=== PATIENT | male | born 1950 | race African-American/Black ===

== ENCOUNTER 2018-12-24 15:11 | Emergency (ER) | payer MEDICAID, MEDICARE ==
[~2018-12-24] VITALS: Ht 170.2 cm; Wt 63.5 kg
[2018-12-24] MEDS ORDERED: SACU1TAB4 MT (15:25)
[2018-12-24] MEDS ORDERED: SPIR25TA6 MT (15:25)
[2018-12-24] MEDS ORDERED: ATOR20TA65 MT (15:25)
[2018-12-24] MEDS ORDERED: CARV6.2548 MT (15:25)
[2018-12-24] MEDS ORDERED: FUROSEMIDE 40MG/4ML VIAL IV ONE (21:00)
[2018-12-24 21:41] LABS: EOSINOPHILS % 1.1 % (0.0-5.0); HEMATOCRIT. 42.1 % (42.0-52.0); HEMOGLOBIN. 13.9 g/dL (14.0-18.0); MEAN CORPUSCULAR VOLUME 97.1 fL (80.0-94.0); MEAN PLATELET VOLUME 10.6 fl (7.4-10.4); MONOCYTES % 8.9 % (2.0-8.0); PLATELET 149 x1000/uL (130-400); RED BLOOD CELL COUNT 4.33 mill/uL (4.7-6.1); RED CELL DISTRIBUTION WIDTH 13.7 % (11.6-14.6)
[2018-12-24 21:49] LABS: CHLORIDE 112 mEq/L (98-107)
[2018-12-24 23:35] VITALS: BP 140/87
== END 2018-12-24 23:38 | disposition home or self-care (01) ==
LOC: ER 15:11 → SUPCPDRO 22:03 → ER 23:38
DX: I11.0 Hypertensive heart disease with heart failure (principal); I50.9 Heart failure, unspecified; E78.00 Pure hypercholesterolemia, unspecified; F17.200 Nicotine dependence, unspecified, uncomplicated; F12.10 Cannabis abuse, uncomplicated; Z95.0 Presence of cardiac pacemaker
CPT/HCPCS: 36415; 71045; 80053; 83880; 84484; 85025; 93005; 96374; 99284; 99406; J1940

== ENCOUNTER 2020-02-06 10:06 | Inpatient (IN) | payer MEDICARE, MEDICAID ==
[~2020-02-06] VITALS: Ht 170.2 cm; Wt 66.7 kg
[~2020-02-06 10:06] MED LIST: ATOR20TA65 MT; CARV6.2548 MT; SACU1TAB4 MT; SPIR25TA6 MT
[2020-02-06] MEDS ORDERED: FURO40TA5 PO (10:35)
[2020-02-06] MEDS ORDERED: NITROGLYCERIN OINT 1GM/INCH UDPKT TD ONE (10:45)
[2020-02-06 11:44] LABS: BASOPHILS % 0.7 % (0.0-2.0); EOSINOPHILS % 0.9 % (0.0-5.0); HEMATOCRIT. 41.7 % (42.0-52.0); HEMOGLOBIN. 13.9 g/dL (14.0-18.0); LYMPHOCYTES % 18.1 % (20.0-50.0); MEAN CORPUSCULAR HEMOGLOBIN 33.1 pg (28.0-32.0); MEAN PLATELET VOLUME 12.2 fl (7.4-10.4); MONOCYTES % 11.3 % (2.0-8.0); PLATELET 118 x1000/uL (130-400); RED BLOOD CELL COUNT 4.21 mill/uL (4.7-6.1); RED CELL DISTRIBUTION WIDTH 14.9 % (11.6-14.6)
[2020-02-06 11:50] LABS: CHLORIDE 110 mEq/L (98-107)
[2020-02-06 11:51] LABS: INR 1.2; PROTHROMBIN TIME 13.2 sec (9.6-11.0)
[2020-02-06] MEDS ORDERED: ASPIRIN 325MG EC TABLET PO ONE (12:15)
[2020-02-06 12:45] VITALS: BP 143/99
[2020-02-06] MEDS: FUROSEMIDE 40MG/4ML VIAL IVP SCH ×2 (14:05→17:55)
[2020-02-06 16:00] VITALS: BP 139/99
[2020-02-06 16:13] LABS: CLARITY URINE CLEAR (CLEAR); COLOR URINE YELLOW (YELLOW); KETONES URINE NEGATIVE (NEGATIVE); LEUKOCYTE ESTERASE URINE NEGATIVE (NEGATIVE); NITRITE URINE NEGATIVE (NEGATIVE); OCCULT BLOOD URINE TRACE (NEGATIVE); PH URINE 5.5 (4.5-8.0); PROTEIN URINE 3+ (NEGATIVE); SPECIFIC GRAVITY URINE 1.016 (1.005-1.030)
[2020-02-06] MEDS ORDERED: ENOXAPARIN 30MG/0.3ML SYR SUBCUT SCH (19:00)
[2020-02-06 20:00] VITALS: BP 133/96
[2020-02-06] MEDS: CARVEDILOL 6.25 MG TABLET PO SCH (21:39)
[2020-02-07] VITALS: BP 122/92
[2020-02-07] MEDS ORDERED: ACETAMINOPHEN 325MG TABLET PO PRN
[2020-02-07] MEDS: IPRATROPIUM/ALBUTEROL 0.5-3(2.5)MG/3ML NEB HHN SCH ×3 (00:45→20:15)
[2020-02-07 04:00] VITALS: BP 135/100
[2020-02-07] MEDS: FUROSEMIDE 40MG/4ML VIAL IVP SCH ×2 (06:10→18:01)
[2020-02-07 06:36] LABS: BASOPHILS % 0.8 % (0.0-2.0); EOSINOPHILS % 3.1 % (0.0-5.0); HEMATOCRIT. 40.3 % (42.0-52.0); HEMOGLOBIN. 13.6 g/dL (14.0-18.0); MEAN CORPUSCULAR HEMOGLOBIN 32.9 pg (28.0-32.0); MEAN CORPUSCULAR VOLUME 97.5 fL (80.0-94.0); MEAN PLATELET VOLUME 11.4 fl (7.4-10.4); MONOCYTES % 9.7 % (2.0-8.0); NEUTROPHILS % 65.4 % (40.0-76.0); PLATELET 116 x1000/uL (130-400); RED BLOOD CELL COUNT 4.13 mill/uL (4.7-6.1); RED CELL DISTRIBUTION WIDTH 14.7 % (11.6-14.6)
[2020-02-07 08:00] VITALS: BP 145/97
[2020-02-07] MEDS: CARVEDILOL 6.25 MG TABLET PO SCH ×2 (08:45→20:33)
[2020-02-07] MEDS: ENOXAPARIN 30MG/0.3ML SYR SUBCUT SCH (08:45)
[2020-02-07] MEDS ORDERED: HYDRALAZINE 20MG/ML VIAL IV PRN (11:15)
[2020-02-07 12:00] VITALS: BP 137/98
[2020-02-07 16:00] VITALS: BP 149/100
[2020-02-07 16:38] LABS: BG BASE EXCESS -0.5 mmol/L (-2.0-2.0); BG CARBOXYHEMOGLOBIN 0.4 % (0.5-1.5); BG DEOXYHEMOGLOBIN 3.2 % (0.0-5.0); BG FRACTION INSPIRED OXYGEN 28; BG METHEMOGLOBIN 0.1 % (0.0-1.5); BG OXYGEN SATURATION 96.8 % (92.0-98.5); BG OXYHEMOGLOBIN 96.3 % (94.0-97.0); BG PCO2 34.4 mmHg (35.0-45.0); BG PH 7.443 (7.350-7.450); BG PO2 87.7 mmHg (75.0-100.0); BG SAMPLE SITE LEFT RADIAL; BG TOTAL HEMOGLOBIN 14.3 g/dL (12.0-18.0); BG VENT MODE NASAL CANNULA
[2020-02-07 20:00] VITALS: BP_SYST 124; BP_DIAS 82; BP_DIAS 86
[2020-02-08] VITALS: BP 137/92
[2020-02-08] MEDS: IPRATROPIUM/ALBUTEROL 0.5-3(2.5)MG/3ML NEB HHN SCH ×5 (00:30→20:12)
[2020-02-08 04:00] VITALS: BP 131/84
[2020-02-08] MEDS: FUROSEMIDE 40MG/4ML VIAL IVP SCH ×2 (06:17→17:14)
[2020-02-08 08:00] VITALS: BP 133/85
[2020-02-08] MEDS: ENOXAPARIN 30MG/0.3ML SYR SUBCUT SCH (09:02)
[2020-02-08] MEDS: CARVEDILOL 6.25 MG TABLET PO SCH ×2 (09:02→21:53)
[2020-02-08 09:44] LABS: BASOPHILS % 0.8 % (0.0-2.0); HEMATOCRIT. 40.7 % (42.0-52.0); HEMOGLOBIN. 13.9 g/dL (14.0-18.0); LYMPHOCYTES % 18.1 % (20.0-50.0); MEAN CORPUSCULAR HEMOGLOBIN 33.2 pg (28.0-32.0); MEAN CORPUSCULAR VOLUME 96.8 fL (80.0-94.0); MEAN PLATELET VOLUME 12.3 fl (7.4-10.4); MONOCYTES % 10.3 % (2.0-8.0); NEUTROPHILS % 67.8 % (40.0-76.0); PLATELET 129 x1000/uL (130-400); RED CELL DISTRIBUTION WIDTH 14.7 % (11.6-14.6)
[2020-02-08 12:00] VITALS: BP 138/95
[2020-02-08] MEDS ORDERED: IPRATROPIUM/ALBUTEROL 0.5-3(2.5)MG/3ML NEB HHN PRN (15:15)
[2020-02-08 16:00] VITALS: BP 139/99
[2020-02-08 23:58] VITALS: BP 133/79
[2020-02-09] MEDS: IPRATROPIUM/ALBUTEROL 0.5-3(2.5)MG/3ML NEB HHN SCH ×4 (02:00→21:05)
[2020-02-09 04:00] VITALS: BP 134/96
[2020-02-09 05:39] LABS: BASOPHILS % 0.9 % (0.0-2.0); HEMATOCRIT. 39.1 % (42.0-52.0); HEMOGLOBIN. 13.4 g/dL (14.0-18.0); LYMPHOCYTES % 17.7 % (20.0-50.0); MEAN CORPUSCULAR HEMOGLOBIN 33.2 pg (28.0-32.0); MEAN CORPUSCULAR VOLUME 97.2 fL (80.0-94.0); MEAN PLATELET VOLUME 11.6 fl (7.4-10.4); MONOCYTES % 12.6 % (2.0-8.0); NEUTROPHILS % 65.8 % (40.0-76.0); PLATELET 134 x1000/uL (130-400); RED BLOOD CELL COUNT 4.02 mill/uL (4.7-6.1); RED CELL DISTRIBUTION WIDTH 14.6 % (11.6-14.6)
[2020-02-09] MEDS: FUROSEMIDE 40MG/4ML VIAL IVP SCH ×2 (06:28→17:06)
[2020-02-09 08:00] VITALS: BP 138/80
[2020-02-09] MEDS ORDERED: POTASSIUM CHLORIDE 10MEQ TABLET SR PO SCH (09:00)
[2020-02-09] MEDS: ENOXAPARIN 30MG/0.3ML SYR SUBCUT SCH (09:09)
[2020-02-09] MEDS: CARVEDILOL 6.25 MG TABLET PO SCH ×2 (09:09→21:26)
[2020-02-09] MEDS ORDERED: KCL 20MEQ/100ML PREMIX 100 ML IV SCH (10:00)
[2020-02-09] MEDS ORDERED: CARV6.2548 MT (11:31)
[2020-02-09] MEDS ORDERED: FURO-151 MT (11:31)
[2020-02-09] MEDS ORDERED: ATOR40TA70 MT (11:34)
[2020-02-09 12:00] VITALS: BP 133/85
[2020-02-09] MEDS ORDERED: POTASSIUM CHLORIDE 20MEQ TABLET SR PO NR (12:00)
[2020-02-09 12:42] VITALS: BP_SYST 121; BP_SYST 133; BP_DIAS 80; BP_DIAS 85
[2020-02-09 16:00] VITALS: BP 141/98
[2020-02-09] MEDS: POTASSIUM CHLORIDE 20MEQ TABLET SR PO SCH (17:05)
[2020-02-09] MEDS ORDERED: ZOLPIDEM TARTRATE 5MG TABLET PO PRN (19:30)
[2020-02-09 20:00] VITALS: BP 139/96
[2020-02-10] VITALS: BP 131/94
[2020-02-10 04:00] VITALS: BP 152/94
[2020-02-10] MEDS: FUROSEMIDE 40MG/4ML VIAL IVP SCH (06:36)
[2020-02-10 06:54] LABS: BASOPHILS % 0.8 % (0.0-2.0); EOSINOPHILS % 3.1 % (0.0-5.0); HEMATOCRIT. 42.9 % (42.0-52.0); HEMOGLOBIN. 14.7 g/dL (14.0-18.0); LYMPHOCYTES % 14.2 % (20.0-50.0); MEAN CORPUSCULAR HEMOGLOBIN 33.3 pg (28.0-32.0); MEAN CORPUSCULAR VOLUME 97.4 fL (80.0-94.0); MONOCYTES % 10.8 % (2.0-8.0); NEUTROPHILS % 71.1 % (40.0-76.0); PLATELET 153 x1000/uL (130-400); RED BLOOD CELL COUNT 4.41 mill/uL (4.7-6.1); RED CELL DISTRIBUTION WIDTH 14.7 % (11.6-14.6)
[2020-02-10] MEDS: IPRATROPIUM/ALBUTEROL 0.5-3(2.5)MG/3ML NEB HHN SCH (07:30)
[2020-02-10 07:58] VITALS: BP 123/83
[2020-02-10] MEDS: POTASSIUM CHLORIDE 20MEQ TABLET SR PO SCH (09:00)
[2020-02-10] MEDS ORDERED: POTASSIUM CHLORIDE 20MEQ TABLET SR PO SCH ×2 (09:00)
[2020-02-10] MEDS: CARVEDILOL 6.25 MG TABLET PO SCH (09:30)
[2020-02-10] MEDS: ENOXAPARIN 30MG/0.3ML SYR SUBCUT SCH (09:32)
[2020-02-10 11:46] VITALS: BP 121/80
== END 2020-02-10 14:07 | disposition home or self-care (01) | DRG 291 ==
LOC: ER 10:06 → 7WST 11:27 → EDBEDREQ 11:30 → ENRESERV 11:38
PROVIDERS: ADMIT Specialist; ATTEND Specialist
DX: I13.2 Hypertensive heart and chronic kidney disease with heart failure and with stage 5 chronic kidney disease, or end stage renal disease (principal); I50.23 Acute on chronic systolic (congestive) heart failure; E43 Unspecified severe protein-calorie malnutrition; J96.01 Acute respiratory failure with hypoxia; N18.6 End stage renal disease; N17.9 Acute kidney failure, unspecified; F12.90 Cannabis use, unspecified, uncomplicated; D69.6 Thrombocytopenia, unspecified; D64.9 Anemia, unspecified; I25.10 Atherosclerotic heart disease of native coronary artery without angina pectoris; J44.9 Chronic obstructive pulmonary disease, unspecified; D72.821 Monocytosis (symptomatic); E78.5 Hyperlipidemia, unspecified; E87.6 Hypokalemia; I08.1 Rheumatic disorders of both mitral and tricuspid valves; I25.5 Ischemic cardiomyopathy; Z60.2 Problems related to living alone; I27.21 Secondary pulmonary arterial hypertension; Z68.23 Body mass index [BMI] 23.0-23.9, adult; Z95.810 Presence of automatic (implantable) cardiac defibrillator; Z79.899 Other long term (current) drug therapy
CPT/HCPCS: 36415; 36600; 71045; 76770; 80048; 80053; 80061; 81003; 82375; 82550; 82805; 83735; 83880; 84484; 85025; 93005; 93306; 94618; 94640; 96365; 97162; 99285; J1650; J1940; J3480

== ENCOUNTER 2021-03-04 15:48 | Inpatient (IN) | payer MEDICARE, MEDICAID ==
[~2021-03-04] VITALS: Ht 170.2 cm; Wt 66.7 kg
[~2021-03-04 15:48] MED LIST changes: -ATOR20TA65 MT; +ATOR40TA70 MT; +FURO-151 MT; -SACU1TAB4 MT; -SPIR25TA6 MT
[2021-03-04 20:23] LABS: BASOPHILS % 0.8 % (0.0-2.0); EOSINOPHILS % 2.3 % (0.0-5.0); HEMOGLOBIN. 13.1 g/dL (14.0-18.0); MEAN CORPUSCULAR HEMOGLOBIN 33.9 pg (28.0-32.0); MEAN CORPUSCULAR VOLUME 98.2 fL (80.0-94.0); MEAN PLATELET VOLUME 10.9 fl (7.4-10.4); MONOCYTES % 9.8 % (2.0-8.0); NEUTROPHILS % 69.1 % (40.0-76.0); PLATELET 202 x1000/uL (130-400); RED BLOOD CELL COUNT 3.87 mill/uL (4.7-6.1); RED CELL DISTRIBUTION WIDTH 14.7 % (11.6-14.6)
[2021-03-04 20:29] LABS: CHLORIDE 110 mEq/L (98-107)
[2021-03-04] MEDS ORDERED: FUROSEMIDE 20MG/2ML VIAL IVP ONE (20:45)
[2021-03-04] MEDS ORDERED: LEVOFLOXACIN 750MG PREMIX 150 ML IV ONE (20:45)
[2021-03-04] MEDS ORDERED: HYDROCODONE/ACETAMINOPHEN 5/325MG TABLET PO PRN (23:00)
[2021-03-04] MEDS ORDERED: ONDANSETRON HCL 4MG/2ML INJ IV PRN (23:00)
[2021-03-04] MEDS ORDERED: IPRATROPIUM/ALBUTEROL 0.5-3(2.5)MG/3ML NEB HHN PRN (23:00)
[2021-03-05] MEDS: FUROSEMIDE 40MG/4ML VIAL IV SCH ×3 (00:07→16:17)
[2021-03-05 04:43] LABS: BASOPHILS % 0.6 % (0.0-2.0); EOSINOPHILS % 1.8 % (0.0-5.0); HEMATOCRIT. 37.7 % (42.0-52.0); HEMOGLOBIN. 12.6 g/dL (14.0-18.0); LYMPHOCYTES % 16.5 % (20.0-50.0); MEAN CORPUSCULAR HEMOGLOBIN 32.9 pg (28.0-32.0); MEAN CORPUSCULAR VOLUME 98.1 fL (80.0-94.0); MONOCYTES % 11.3 % (2.0-8.0); NEUTROPHILS % 69.8 % (40.0-76.0); PLATELET 195 x1000/uL (130-400); RED BLOOD CELL COUNT 3.84 mill/uL (4.7-6.1); RED CELL DISTRIBUTION WIDTH 14.8 % (11.6-14.6)
[2021-03-05 04:53] LABS: CHLORIDE 110 mEq/L (98-107)
[2021-03-05 05:01] LABS: HDL CHOLESTEROL 41 mg/dL (40-59)
[2021-03-05 05:03] LABS: LDL CHOLESTEROL 86 mg/dL (5-100)
[2021-03-05 05:04] LABS: CREATINE KINASE 132 IU/L (39-308)
[2021-03-05 05:08] LABS: T4 FREE 2.02 ng/dL (0.76-1.46)
[2021-03-05] MEDS ORDERED: CLONIDINE 0.1MG TABLET PO NR (06:30)
[2021-03-05 09:50] VITALS: BP 167/101
[2021-03-05] MEDS ORDERED: CARVEDILOL 3.125 MG TABLET PO NR (10:30)
[2021-03-05] MEDS: ASPIRIN 81MG EC TABLET PO SCH (11:04)
[2021-03-05] MEDS: CLONIDINE 0.1MG TABLET PO PRN (11:04)
[2021-03-05 11:26] LABS: BG BASE EXCESS -0.3 mmol/L (-2.0-2.0); BG CARBOXYHEMOGLOBIN 0.5 % (0.5-1.5); BG DEOXYHEMOGLOBIN 3.3 % (0.0-5.0); BG FRACTION INSPIRED OXYGEN 36; BG HCO3 ACT 24.1 mmol/L (22.0-26.0); BG METHEMOGLOBIN 0.3 % (0.0-1.5); BG OXYGEN SATURATION 96.7 % (92.0-98.5); BG OXYHEMOGLOBIN 95.9 % (94.0-97.0); BG PCO2 38.8 mmHg (35.0-45.0); BG PH 7.411 (7.350-7.450); BG PO2 92.2 mmHg (75.0-100.0); BG SAMPLE SITE RIGHT RADIAL; BG TOTAL HEMOGLOBIN 13.6 g/dL (12.0-18.0); BG VENT MODE NASAL CANNULA
[2021-03-05 12:00] VITALS: BP 165/123
[2021-03-05 13:30] VITALS: BP 146/83
[2021-03-05 16:00] VITALS: BP 145/91
[2021-03-05] MEDS: ENOXAPARIN 30MG/0.3ML SYR SUBCUT SCH (16:17)
[2021-03-05] MEDS ORDERED: ACETAMINOPHEN 650MG SUPP PR PRN (16:45)
[2021-03-05] MEDS ORDERED: HYDRALAZINE 20MG/ML VIAL IV PRN (16:45)
[2021-03-05] MEDS ORDERED: ACETAMINOPHEN 325MG TABLET PO PRN (16:45)
[2021-03-05] MEDS ORDERED: LORAZEPAM 2MG/ML CPJ IV PRN (16:45)
[2021-03-05] MEDS ORDERED: LACTULOSE 20G/30ML UDC PO PRN (16:45)
[2021-03-05] MEDS: CARVEDILOL 3.125 MG TABLET PO SCH (20:38)
[2021-03-05] MEDS: FAMOTIDINE 20MG TABLET PO SCH (20:38)
[2021-03-05 20:42] VITALS: BP 139/108
[2021-03-06] VITALS (7 sets, daily range): BP systolic 133–158; BP diastolic 85–113
[2021-03-06 06:47] LABS: BASOPHILS % 0.5 % (0.0-2.0); EOSINOPHILS % 2.2 % (0.0-5.0); HEMATOCRIT. 38.6 % (42.0-52.0); HEMOGLOBIN. 12.8 g/dL (14.0-18.0); LYMPHOCYTES % 16.7 % (20.0-50.0); MEAN CORPUSCULAR HEMOGLOBIN 32.8 pg (28.0-32.0); MEAN CORPUSCULAR VOLUME 98.8 fL (80.0-94.0); MONOCYTES % 9.4 % (2.0-8.0); NEUTROPHILS % 71.2 % (40.0-76.0); PLATELET 193 x1000/uL (130-400); RED BLOOD CELL COUNT 3.91 mill/uL (4.7-6.1)
[2021-03-06] MEDS: ASPIRIN 81MG EC TABLET PO SCH (09:16)
[2021-03-06] MEDS: FUROSEMIDE 40MG/4ML VIAL IV SCH ×2 (09:17→16:57)
[2021-03-06] MEDS: CARVEDILOL 3.125 MG TABLET PO SCH ×2 (09:17→21:27)
[2021-03-06] MEDS ORDERED: POTASSIUM CHLORIDE 20MEQ TABLET SR PO NR (09:30)
[2021-03-06] MEDS ORDERED: POTASSIUM CHLORIDE 20MEQ TABLET SR PO ONE (09:30)
[2021-03-06] MEDS ORDERED: METOLAZONE 2.5MG TABLET PO NR (09:30)
[2021-03-06] MEDS: CLONIDINE 0.1MG TABLET PO PRN (16:57)
[2021-03-06] MEDS: ENOXAPARIN 30MG/0.3ML SYR SUBCUT SCH (16:57)
[2021-03-06] MEDS: SILDENAFIL CITRATE 20MG TABLET PO SCH (21:27)
[2021-03-06] MEDS: FAMOTIDINE 20MG TABLET PO SCH (21:28)
[2021-03-07] VITALS (7 sets, daily range): BP systolic 112–129; BP diastolic 66–84
[2021-03-07] MEDS: SILDENAFIL CITRATE 20MG TABLET PO SCH ×3 (06:29→21:38)
[2021-03-07 06:35] LABS: BASOPHILS % 0.6 % (0.0-2.0); EOSINOPHILS % 3.2 % (0.0-5.0); HEMATOCRIT. 39.2 % (42.0-52.0); HEMOGLOBIN. 13.5 g/dL (14.0-18.0); MEAN CORPUSCULAR HEMOGLOBIN 33.8 pg (28.0-32.0); MEAN CORPUSCULAR VOLUME 97.9 fL (80.0-94.0); MONOCYTES % 8.9 % (2.0-8.0); NEUTROPHILS % 67.3 % (40.0-76.0); PLATELET 199 x1000/uL (130-400); RED CELL DISTRIBUTION WIDTH 14.4 % (11.6-14.6)
[2021-03-07] MEDS: FUROSEMIDE 40MG/4ML VIAL IV SCH ×2 (08:51→16:45)
[2021-03-07] MEDS: ASPIRIN 81MG EC TABLET PO SCH (08:51)
[2021-03-07] MEDS: CARVEDILOL 3.125 MG TABLET PO SCH ×2 (08:51→21:37)
[2021-03-07] MEDS ORDERED: POTASSIUM CHLORIDE 20MEQ TABLET SR PO NR ×2 (09:30→16:00)
[2021-03-07] MEDS: ENOXAPARIN 30MG/0.3ML SYR SUBCUT SCH (16:48)
[2021-03-07] MEDS: FAMOTIDINE 20MG TABLET PO SCH (21:38)
[2021-03-07] MEDS ORDERED: POTASSIUM CHLORIDE 20MEQ TABLET SR PO SCH (21:45)
[2021-03-08] VITALS: BP 103/76
[2021-03-08 02:06] VITALS: BP 103/76
[2021-03-08 04:00] VITALS: BP 113/72
[2021-03-08] MEDS: SILDENAFIL CITRATE 20MG TABLET PO SCH ×2 (06:15→13:52)
[2021-03-08 06:51] LABS: BASOPHILS % 0.5 % (0.0-2.0); EOSINOPHILS % 2.6 % (0.0-5.0); HEMATOCRIT. 43.9 % (42.0-52.0); HEMOGLOBIN. 14.9 g/dL (14.0-18.0); LYMPHOCYTES % 13.2 % (20.0-50.0); MEAN CORPUSCULAR HEMOGLOBIN 33.1 pg (28.0-32.0); MEAN CORPUSCULAR VOLUME 97.5 fL (80.0-94.0); MEAN PLATELET VOLUME 10.7 fl (7.4-10.4); MONOCYTES % 10.3 % (2.0-8.0); NEUTROPHILS % 73.4 % (40.0-76.0); PLATELET 235 x1000/uL (130-400); RED CELL DISTRIBUTION WIDTH 14.8 % (11.6-14.6)
[2021-03-08] MEDS: CARVEDILOL 3.125 MG TABLET PO SCH (09:00)
[2021-03-08] MEDS: ASPIRIN 81MG EC TABLET PO SCH (09:32)
[2021-03-08] MEDS: FUROSEMIDE 40MG/4ML VIAL IV SCH (09:33)
[2021-03-08 12:00] VITALS: BP 112/60
[2021-03-08 14:49] VITALS: BP 111/76
== END 2021-03-08 16:00 | disposition home or self-care (01) | DRG 291 ==
LOC: ER 15:48 → EDBEDREQ 21:40 → MICUSO 21:58 → EDBEDREQ 22:02 → EDBEDREQTM 22:02 → 7WST 03-05 06:28 → 6WST 03-06 04:40
PROVIDERS: ADMIT Internal Medicine; ATTEND Internal Medicine
DX: I13.0 Hypertensive heart and chronic kidney disease with heart failure and stage 1 through stage 4 chronic kidney disease, or unspecified chronic kidney disease (principal); I50.23 Acute on chronic systolic (congestive) heart failure; J96.01 Acute respiratory failure with hypoxia; N17.9 Acute kidney failure, unspecified; I42.0 Dilated cardiomyopathy; N18.9 Chronic kidney disease, unspecified; D63.8 Anemia in other chronic diseases classified elsewhere; I25.10 Atherosclerotic heart disease of native coronary artery without angina pectoris; I34.0 Nonrheumatic mitral (valve) insufficiency; R79.89 Other specified abnormal findings of blood chemistry; E03.9 Hypothyroidism, unspecified; Z20.822 Contact with and (suspected) exposure to COVID-19; T50.1X6A Underdosing of loop [high-ceiling] diuretics, initial encounter; I27.21 Secondary pulmonary arterial hypertension; Z95.810 Presence of automatic (implantable) cardiac defibrillator; Y92.89 Other specified places as the place of occurrence of the external cause
CPT/HCPCS: 36415; 36600; 71045; 80048; 80053; 80061; 82375; 82550; 82805; 83735; 83880; 84439; 84443; 84484; 85025; 93005; 93306; 93970; 97162; 99291; J1650; J1940; J1956; U0003

== ENCOUNTER → 2021-07-18 | Outpatient (CLI) | payer MEDICARE, MEDICAID ==
[2021-07-18 13:07] LABS: BASOPHILS % 0.9 % (0.0-2.0); EOSINOPHILS % 2.4 % (0.0-5.0); HEMATOCRIT. 43.9 % (42.0-52.0); HEMOGLOBIN. 14.7 g/dL (14.0-18.0); LYMPHOCYTES % 13.6 % (20.0-50.0); MEAN CORPUSCULAR HEMOGLOBIN 31.5 pg (28.0-32.0); MEAN CORPUSCULAR VOLUME 94.3 fL (80.0-94.0); MEAN PLATELET VOLUME 9.6 fl (7.4-10.4); MONOCYTES % 10.9 % (2.0-8.0); NEUTROPHILS % 72.2 % (40.0-76.0); PLATELET 187 x1000/uL (130-400); RED BLOOD CELL COUNT 4.66 mill/uL (4.7-6.1)
[2021-07-18 13:23] LABS: CHLORIDE 109 mEq/L (98-107)
[2021-07-18 13:31] LABS: LDL CHOLESTEROL 168 mg/dL (5-100)
[2021-07-18 13:32] LABS: HDL CHOLESTEROL 67 mg/dL (40-59); T4 FREE 1.18 ng/dL (0.76-1.46)
== END | disposition home or self-care (01) ==
LOC: LAB 12:03
PROVIDERS: ATTEND Specialist
DX: E11.9 Type 2 diabetes mellitus without complications (principal); E78.2 Mixed hyperlipidemia; D64.9 Anemia, unspecified; E55.9 Vitamin D deficiency, unspecified
CPT/HCPCS: 36415; 80053; 80061; 82306; 83036; 84439; 84443; 84480; 85025

== ENCOUNTER 2021-12-09 07:43 | Inpatient (IN) | payer MEDICARE, MEDICAID ==
[~2021-12-09] VITALS: Ht 170.2 cm; Wt 63.6 kg
[2021-12-09 09:12] LABS: CHLORIDE 109 mEq/L (98-107)
[2021-12-09] MEDS ORDERED: FUROSEMIDE 40MG/4ML VIAL IVP SCH ×2 (10:15→17:00)
[2021-12-09] MEDS ORDERED: DOCUSATE SODIUM 100MG CAPSULE PO PRN (12:45)
[2021-12-09] MEDS ORDERED: HYDROCODONE/ACETAMINOPHEN 10/325MG TABLET PO PRN (12:45)
[2021-12-09] MEDS ORDERED: CLONIDINE 0.1MG TABLET PO PRN (12:45)
[2021-12-09] MEDS ORDERED: MAGNESIUM/ALUMINUM HYDROXIDE/SIMETHICONE 30ML UDC PO PRN (12:45)
[2021-12-09] MEDS ORDERED: ONDANSETRON HCL 4MG/2ML INJ IV PRN (12:45)
[2021-12-09] MEDS ORDERED: IPRATROPIUM/ALBUTEROL 0.5-3(2.5)MG/3ML NEB HHN PRN (12:45)
[2021-12-09] MEDS ORDERED: GUAIFENESIN 200MG/10ML SUGAR FREE UDC PO PRN (12:45)
[2021-12-09] MEDS ORDERED: ACETAMINOPHEN 325MG TABLET PO PRN (12:45)
[2021-12-09] MEDS ORDERED: ACETAMINOPHEN 650MG/20.3ML UDC GT PRN (12:45)
[2021-12-09 13:17] LABS: BASOPHILS % 0.6 % (0.0-2.0); EOSINOPHILS % 3.5 % (0.0-5.0); HEMATOCRIT. 41.3 % (42.0-52.0); HEMOGLOBIN. 12.7 g/dL (14.0-18.0); LYMPHOCYTES % 13.6 % (20.0-50.0); MEAN CORPUSCULAR HEMOGLOBIN 29.8 pg (28.0-32.0); MEAN CORPUSCULAR VOLUME 97.1 fL (80.0-94.0); MEAN PLATELET VOLUME 10.7 fl (7.4-10.4); MONOCYTES % 11.7 % (2.0-8.0); NEUTROPHILS % 70.6 % (40.0-76.0); PLATELET 162 x1000/uL (130-400); RED BLOOD CELL COUNT 4.25 mill/uL (4.7-6.1); RED CELL DISTRIBUTION WIDTH 16.2 % (11.6-14.6)
[2021-12-09] MEDS ORDERED: DOPAMINE 400MG/250ML PREMIX 250 ML IV SCH (14:00)
[2021-12-09] MEDS ORDERED: DOBUTAMINE 500MG PREMIX 250 ML IV SCH (14:00)
[2021-12-09] MEDS: DOBUTAMINE 500MG PREMIX 250 ML IV SCH (16:46)
[2021-12-09 20:00] VITALS: BP 142/70
[2021-12-09] MEDS: FUROSEMIDE 100MG/10ML VIAL IV SCH (20:25)
[2021-12-09] MEDS: CARVEDILOL 3.125 MG TABLET PO SCH (20:25)
[2021-12-09 20:45] VITALS: BP 142/70
[2021-12-09] MEDS: SILDENAFIL CITRATE 20MG TABLET PO SCH (21:58)
[2021-12-09 22:00] VITALS: BP 116/68
[2021-12-09] MEDS ORDERED: ASPI-1406 MT (23:17)
[2021-12-09] MEDS ORDERED: MELA5TAB21 MT (23:19)
[2021-12-10] VITALS (18 sets, daily range): BP systolic 91–145; BP diastolic 52–83
[2021-12-10] MEDS: SILDENAFIL CITRATE 20MG TABLET PO SCH ×3 (06:05→21:30)
[2021-12-10 07:47] LABS: BASOPHILS % 0.6 % (0.0-2.0); EOSINOPHILS % 2.9 % (0.0-5.0); HEMATOCRIT. 35.3 % (42.0-52.0); HEMOGLOBIN. 11.8 g/dL (14.0-18.0); LYMPHOCYTES % 11.1 % (20.0-50.0); MEAN CORPUSCULAR HEMOGLOBIN 31.4 pg (28.0-32.0); MEAN CORPUSCULAR VOLUME 93.8 fL (80.0-94.0); MEAN PLATELET VOLUME 10.3 fl (7.4-10.4); MONOCYTES % 10.6 % (2.0-8.0); NEUTROPHILS % 74.8 % (40.0-76.0); PLATELET 141 x1000/uL (130-400); RED BLOOD CELL COUNT 3.76 mill/uL (4.7-6.1); RED CELL DISTRIBUTION WIDTH 16.3 % (11.6-14.6)
[2021-12-10] MEDS: FUROSEMIDE 100MG/10ML VIAL IV SCH ×2 (08:19→21:29)
[2021-12-10] MEDS: CARVEDILOL 3.125 MG TABLET PO SCH ×2 (08:19→21:29)
[2021-12-10] MEDS: ENOXAPARIN 30MG/0.3ML SYR SUBCUT SCH (08:19)
[2021-12-10] MEDS: DOBUTAMINE 500MG PREMIX 250 ML IV SCH (13:52)
[2021-12-10] MEDS ORDERED: NALOXONE HCL 0.4MG/ML VIAL IV PRN (18:00)
[2021-12-11] VITALS (15 sets, daily range): BP systolic 104–136; BP diastolic 62–83
[2021-12-11] MEDS: SILDENAFIL CITRATE 20MG TABLET PO SCH ×3 (05:06→21:11)
[2021-12-11 07:32] LABS: BASOPHILS % 0.8 % (0.0-2.0); EOSINOPHILS % 2.9 % (0.0-5.0); HEMATOCRIT. 38.7 % (42.0-52.0); HEMOGLOBIN. 12.7 g/dL (14.0-18.0); LYMPHOCYTES % 7.8 % (20.0-50.0); MEAN CORPUSCULAR HEMOGLOBIN 30.8 pg (28.0-32.0); MEAN CORPUSCULAR VOLUME 94.1 fL (80.0-94.0); MEAN PLATELET VOLUME 9.7 fl (7.4-10.4); MONOCYTES % 13.7 % (2.0-8.0); NEUTROPHILS % 74.8 % (40.0-76.0); PLATELET 169 x1000/uL (130-400); RED BLOOD CELL COUNT 4.12 mill/uL (4.7-6.1); RED CELL DISTRIBUTION WIDTH 16.6 % (11.6-14.6)
[2021-12-11] MEDS: FUROSEMIDE 100MG/10ML VIAL IV SCH ×2 (08:43→21:11)
[2021-12-11] MEDS: CARVEDILOL 3.125 MG TABLET PO SCH ×3 (08:44→21:12)
[2021-12-11] MEDS: ENOXAPARIN 30MG/0.3ML SYR SUBCUT SCH (08:45)
[2021-12-11] MEDS: DOBUTAMINE 500MG PREMIX 250 ML IV SCH (14:07)
[2021-12-11] MEDS: DOPAMINE 400MG/250ML PREMIX 250 ML IV SCH (15:00)
[2021-12-11] MEDS: DOBUTAMINE 500 MG in DEXT 5% WATER 210 ML IV SCH (20:54)
[2021-12-12] VITALS (20 sets, daily range): BP systolic 85–136; BP diastolic 55–86
[2021-12-12] MEDS: SILDENAFIL CITRATE 20MG TABLET PO SCH ×3 (06:01→21:35)
[2021-12-12 07:33] LABS: BASOPHILS % 0.7 % (0.0-2.0); EOSINOPHILS % 3.4 % (0.0-5.0); HEMATOCRIT. 39.7 % (42.0-52.0); HEMOGLOBIN. 13.5 g/dL (14.0-18.0); LYMPHOCYTES % 8.3 % (20.0-50.0); MEAN CORPUSCULAR HEMOGLOBIN 31.3 pg (28.0-32.0); MEAN CORPUSCULAR VOLUME 92.4 fL (80.0-94.0); MONOCYTES % 14.1 % (2.0-8.0); NEUTROPHILS % 73.5 % (40.0-76.0); PLATELET 178 x1000/uL (130-400); RED CELL DISTRIBUTION WIDTH 16.1 % (11.6-14.6)
[2021-12-12] MEDS: ENOXAPARIN 30MG/0.3ML SYR SUBCUT SCH (08:34)
[2021-12-12] MEDS: FUROSEMIDE 100MG/10ML VIAL IV SCH ×3 (08:34→21:34)
[2021-12-12] MEDS: CARVEDILOL 3.125 MG TABLET PO SCH ×3 (08:35→21:35)
[2021-12-12] MEDS: DOBUTAMINE 500 MG in DEXT 5% WATER 210 ML IV SCH (16:05)
[2021-12-12] MEDS: DOPAMINE 400MG/250ML PREMIX 250 ML IV SCH (16:06)
[2021-12-12] MEDS ORDERED: FUROSEMIDE 100MG/10ML VIAL IV SCH (17:15)
[2021-12-13] VITALS (16 sets, daily range): BP systolic 99–128; BP diastolic 54–85
[2021-12-13] MEDS: SILDENAFIL CITRATE 20MG TABLET PO SCH ×3 (06:03→21:52)
[2021-12-13] MEDS: FUROSEMIDE 100MG/10ML VIAL IV SCH ×2 (06:16→17:03)
[2021-12-13 08:13] LABS: HEMATOCRIT. 41.4 % (42.0-52.0); HEMOGLOBIN. 13.9 g/dL (14.0-18.0); MEAN CORPUSCULAR VOLUME 92.6 fL (80.0-94.0); MEAN PLATELET VOLUME 9.8 fl (7.4-10.4); PLATELET 186 x1000/uL (130-400); RED BLOOD CELL COUNT 4.47 mill/uL (4.7-6.1); RED CELL DISTRIBUTION WIDTH 16.2 % (11.6-14.6)
[2021-12-13] MEDS: ENOXAPARIN 30MG/0.3ML SYR SUBCUT SCH (08:20)
[2021-12-13] MEDS: CARVEDILOL 3.125 MG TABLET PO SCH ×2 (08:20→21:52)
[2021-12-13 11:32] LABS: PLATELET ESTIMATE NORMAL
[2021-12-13] MEDS ORDERED: FURO40TA5 MT (13:28)
[2021-12-13] MEDS ORDERED: COR3 PO (13:28)
[2021-12-13] MEDS ORDERED: IPRA3AMP9 HHN (13:28)
[2021-12-13] MEDS ORDERED: REV20 PO (13:28)
[2021-12-13] MEDS ORDERED: LEVO25TA7 MT (20:29)
[2021-12-14] VITALS: BP 110/66
[2021-12-14 02:00] VITALS: BP 108/61
[2021-12-14 04:00] VITALS: BP 114/71
[2021-12-14 06:00] VITALS: BP 117/63
[2021-12-14] MEDS: SILDENAFIL CITRATE 20MG TABLET PO SCH ×2 (06:25→14:00)
[2021-12-14] MEDS: FUROSEMIDE 100MG/10ML VIAL IV SCH (06:25)
[2021-12-14 07:43] VITALS: BP 121/70
[2021-12-14] MEDS: ENOXAPARIN 30MG/0.3ML SYR SUBCUT SCH (09:24)
[2021-12-14] MEDS: CARVEDILOL 3.125 MG TABLET PO SCH (09:24)
[2021-12-14 10:00] VITALS: BP 104/61
[2021-12-14] MEDS ORDERED: LEVO25TA7 MT (11:54)
== END 2021-12-14 14:45 | disposition home or self-care (01) | DRG 291 ==
LOC: ER 07:43 → EDBEDREQ 10:20 → 3WST 11:05 → EDBEDREQ 11:09 → SUPCPDRO 12:57 → EDBEDREQSVC 16:08 → ENRESERV 17:37
PROVIDERS: ADMIT Family Medicine Adult Medicine; ATTEND Family Medicine Adult Medicine
PROC: 05HY33Z Insertion of Infusion Device into Upper Vein, Percutaneous Approach (ICD-10-PCS; principal; 2021-12-11)
PROC: B54MZZA Ultrasonography of Right Upper Extremity Veins, Guidance (ICD-10-PCS; 2021-12-11)
DX: I13.2 Hypertensive heart and chronic kidney disease with heart failure and with stage 5 chronic kidney disease, or end stage renal disease (principal); N18.6 End stage renal disease; I50.43 Acute on chronic combined systolic (congestive) and diastolic (congestive) heart failure; N17.9 Acute kidney failure, unspecified; I42.0 Dilated cardiomyopathy; Z20.822 Contact with and (suspected) exposure to COVID-19; I27.21 Secondary pulmonary arterial hypertension; Z95.810 Presence of automatic (implantable) cardiac defibrillator; I25.10 Atherosclerotic heart disease of native coronary artery without angina pectoris; F12.10 Cannabis abuse, uncomplicated; E78.5 Hyperlipidemia, unspecified; K21.9 Gastro-esophageal reflux disease without esophagitis; R79.89 Other specified abnormal findings of blood chemistry; D64.9 Anemia, unspecified; I34.0 Nonrheumatic mitral (valve) insufficiency
CPT/HCPCS: 36415; 71045; 76937; 80048; 80053; 82550; 83735; 83880; 84443; 84484; 85025; 87426; 93005; 93970; 97116; 97162; 97165; 97530; 99285; C1725; J1250; J1265; J1650; J1940; J7060

== ENCOUNTER 2023-01-06 11:35 | Emergency (ER) | payer BC, MEDICAID ==
[~2023-01-06] VITALS: Ht 170.2 cm; Wt 64.0 kg
[~2023-01-06 11:35] MED LIST changes: +AMI2 PO; +APIX5TAB MT; -ATOR40TA70 MT; -CARV6.2548 MT; -FURO-151 MT; +IPRA3AMP9 HHN; +LEVO25TA7 MT; +MELA5TAB21 MT; +REV20 PO
[2023-01-06 11:43] VITALS: BP 136/78
[2023-01-06 15:05] LABS: BASOPHILS % 1.1 % (0.0-2.0); EOSINOPHILS % 8.1 % (0.0-5.0); HEMOGLOBIN. 12.9 g/dL (14.0-18.0); MEAN CORPUSCULAR HEMOGLOBIN 34.3 pg (28.0-32.0); MEAN CORPUSCULAR VOLUME 101.5 fL (80.0-94.0); MEAN PLATELET VOLUME 9.6 fl (7.4-10.4); MONOCYTES % 9.4 % (2.0-8.0); NEUTROPHILS % 66.4 % (40.0-76.0); PLATELET 210 x1000/uL (130-400); RED BLOOD CELL COUNT 3.75 mill/uL (4.7-6.1); RED CELL DISTRIBUTION WIDTH 13.9 % (11.6-14.6)
[2023-01-06 15:11] LABS: CHLORIDE 109 mEq/L (98-107)
[2023-01-06 15:19] LABS: INR 1.1; PROTHROMBIN TIME 11.3 sec (9.6-11.0)
== END 2023-01-06 19:12 | disposition home or self-care (01) ==
LOC: ER 11:35 → EDBEDREQ 15:10 → ER 19:12 → CANBEDREQ 01-07 11:50
DX: T82.838A Hemorrhage due to vascular prosthetic devices, implants and grafts, initial encounter (principal); I11.0 Hypertensive heart disease with heart failure; I50.9 Heart failure, unspecified
CPT/HCPCS: 36415; 80053; 85025; 99283